=== PATIENT | female | born 1960 | race Caucasian/White ===

== ENCOUNTER 2017-10-07 07:45 | Day surgery (SDC) | payer MEDICAID ==
[2017-10-07] VITALS (22 sets, daily range): BP systolic 102–135; BP diastolic 49–93
[~2017-10-07] VITALS: Ht 165.1 cm; Wt 72.8 kg
[~2017-10-07 07:45] MED LIST: ACET-812 PO; DOCU100C41 PO; LORA10TA65 PO; PROC10TA PO; biotin PO
[2017-10-07] MEDS ORDERED: CHOL50004 PO (08:16)
[2017-10-07] MEDS ORDERED: FOLI1TAB16 PO (08:16)
[2017-10-07] MEDS ORDERED: normal saline 1000ml 1,000 ML IV SCH (08:20)
[2017-10-07] MEDS ORDERED: guaiFENesin/codeine phos 10ml UD oral syrup PO ONE (08:30)
[2017-10-07] MEDS ORDERED: TAMO10TA4 PO (08:53)
[2017-10-07 09:15] LABS: BASOPHILS % (AUTO) 0.7 % (0-1); EOSINOPHILS # (AUTO) 0.1 X10'3 (0-0.9); EOSINOPHILS % (AUTO) 1.5 % (0-6); HEMATOCRIT 38.8 % (35.0-45.0); HEMOGLOBIN 12.9 g/dl (12.0-16.0); LYMPHOCYTES % (AUTO) 24.4 % (21-51); MEAN CORPUSCULAR HGB CONC 33.2 % (33.0-36.5); MEAN CORPUSCULAR VOLUME 87.3 FL (78-98); MEAN PLATELET VOLUME 7.5 FL (7.4-10.4); MONOCYTES # (AUTO) 0.3 X10'3 (0-0.9); NEUTROPHILS # (AUTO) 2.9 X10'3 (1.8-7.7); NEUTROPHILS % (AUTO) 67.4 % (42-75); PLATELET COUNT 364 X10'3 (140-440); RED BLOOD COUNT 4.44 X10'6 (4.20-5.60); RED CELL DISTRIBUTION WIDTH 13.2 % (11.5-14.5); WHITE BLOOD COUNT 4.3 X10'3 (4.5-11.0)
[2017-10-07] MEDS ORDERED: fentaNYL/PF 50MCG/1 ML 2ML syringe IV PRN (09:15)
[2017-10-07] MEDS ORDERED: midazolam 2 mg/2 ml injection IV PRN (09:15)
[2017-10-07] MEDS ORDERED: midazolam 2 mg/2 ml injection ONE (09:20)
[2017-10-07] MEDS ORDERED: fentaNYL/PF 50MCG/1 ML 2ML syringe ONE (09:20)
== END 2017-10-07 13:45 | disposition home or self-care (01) ==
LOC: SSTAY O 07:45
PROVIDERS: ATTEND Radiology Diagnostic Radiology
DX: C34.32 Malignant neoplasm of lower lobe, left bronchus or lung (principal); Z85.42 Personal history of malignant neoplasm of other parts of uterus; Z90.710 Acquired absence of both cervix and uterus; Z98.890 Other specified postprocedural states; Z79.899 Other long term (current) drug therapy
CPT/HCPCS: 32405; 36415; 71045; 77012; 85025; J2250; J3010; J7030; 99152; 99153